=== PATIENT | male | born 1950 | race Caucasian/White ===

== ENCOUNTER 2020-08-05 08:12 | Outpatient (REF) | payer MEDICARE, SELFPAY | END 2020-08-05 08:13 | disposition home or self-care (01) | LOC: HO.LAB 08:12 | PROVIDERS: Visit Provider Internal Medicine | DX: Z20.822 Contact with and (suspected) exposure to COVID-19 (principal) | CPT/HCPCS: 36415; C9803; U0003 ==

== ENCOUNTER 2022-04-08 13:13 | Outpatient (REF) | payer MEDICARE, SELFPAY | END 2022-04-08 13:14 | disposition home or self-care (01) | LOC: HO.BBR 13:13 | PROVIDERS: Visit Provider Internal Medicine Hematology | DX: Z13.89 Encounter for screening for other disorder (principal) ==

== ENCOUNTER 2022-08-12 08:58 | Outpatient (REF) | payer MEDICARE, SELFPAY | END 2022-08-12 08:59 | disposition home or self-care (01) | LOC: HO.BBR 08:58 | PROVIDERS: PCP Family Medicine; Visit Provider Internal Medicine Hematology | DX: Z13.89 Encounter for screening for other disorder (principal) ==

== ENCOUNTER 2022-12-17 08:56 | Outpatient (REF) | payer MEDICARE, SELFPAY | END 2022-12-17 08:57 | disposition home or self-care (01) | LOC: HO.BBR 08:56 | PROVIDERS: Visit Provider Internal Medicine Hematology | DX: Z13.89 Encounter for screening for other disorder (principal) ==

== ENCOUNTER 2023-05-27 08:49 | Outpatient (REF) | payer MEDICARE, SELFPAY | END 2023-05-27 08:50 | disposition home or self-care (01) | LOC: HO.BBR 08:49 | PROVIDERS: PCP Family Medicine; Visit Provider Internal Medicine Hematology | DX: Z13.89 Encounter for screening for other disorder (principal) ==

== ENCOUNTER 2024-01-03 09:53 | Outpatient (REF) | payer MEDICARE, SELFPAY | END 2024-01-03 09:54 | disposition home or self-care (01) | LOC: HO.BBR 09:53 | PROVIDERS: PCP Family Medicine; Visit Provider Internal Medicine Hematology | DX: Z13.89 Encounter for screening for other disorder (principal) ==

== ENCOUNTER 2025-06-01 11:01 | Outpatient (REF) | payer MEDICARE, SELFPAY ==
--- OUTSIDE RECORDS SUMMARY | 2025-06-01 13:19 | XMS_ITS | Encounter Summary ---
Author Organization [facility] Address [address] [place] [phone] Phone Care Team Providers Care Tire Technician Name Role Phone Scott Wiggins DO Primary Care Provider [phone] Darren Molina MD Primary Care Provide r Reason for Referral * Physical Therapy (Routine) - Closed Specialty Diagnoses / Procedures Referred By Phillip choi Referred To Contact Physical Therapy Diagnoses Encounter for rehabilitation Scott Wiggins DO Phone: tel: fax: [email or web address] [address] [address] Phone: tel: Referral ID Status Reason Start Date Expiration Date Visits Re quested Visits Authorized [id number] Closed 03/03/2018 05/06/2018 21 21 Encounter Details Date Type Department Care Team (Latest Contact Info) Description 02/24/2018 Transcribe Orders [facility] [address] [place] [phone] Scott Wiggins DO [address] [place] [address] [email or web address] Encounter for rehabilitation (Primary Dx) Social History Tobacco Use Types Packs/Day Years Used Date Smoking Tobacco: Never Assessed Sex and Gender Information Value Date Recorded Sex Assigned at Not on file Legal Sex Male 6:37 PM EST Gender Identity Male 07/05/2023 12:45 PM EST Sexual Orientation Straight 07/05/2023 12 :45 PM EST documented as of this encounter Plan of Treatment Scheduled Referrals Name Type Priority Associated Diagnoses Orde r Schedule Ambulatory referral to [facility] Physical Therapy Outpatient Referral Routine Encounter for rehabilitation Ordered: 02/24/2018 documented as of this encounter Visit Diagnoses Diagnosis Encounter for rehabilitation- Primary documented in this encounter Additional Health Concerns Infection Onset Date Last Indicated Resolved Time CoV-Exposed Comment:Recent close contact documented in the COVID-19 PCR/PRO order 07/18/2021 07/23/2021 08/02/2021 1:[address] documented as of this encounter Care Teams Tire Technician Relationship Specialty Start Date End Date Scott Wiggins DO [address] [place] [phone] PCP - General 05/11/17 12/12/18 Darren Molina MD [address] [address] PCP - General Family Medicine 12/13/18 documented as of this encounter Additional Source Comments The information contained in this document represents components of the legal health record. It is not the complete legal health record.[facility]
--- OUTSIDE RECORDS SUMMARY | 2025-06-01 13:19 | XMS_ITS | Encounter Summary ---
Author Organization [facility] Address [address] [place] [address] Phone Care Team Providers Care Bulk Fluids Handler Name Role Phone Darren Molina MD Primary Care Provide r Encounter Details Date Type Department Care Team (Late st Contact Info) Description 10/23/2024 Procedure Pass [facility] Endoscopy Admitting Dept Virtual Department [address] [place] [address] Social History Tobacco Use Types Packs/Day Years Used Date Smoking Tobacco: Never Smokeless Tobacco: Never Alcohol Use Standard Drinks/Week Comments Yes 7 (1 standard drink = 0.6 oz pur e alcohol) 1 beer per day Education Answer Date Recorded Are you interested in more education? Not on yu e 11/21/2022 Are you concerned about learning? Not on file 11/21/2022 No 11/21/2022 No 11/21/2022 Digital Access Answer Date Recorded No 12/20/2022 No 12/20/2022 Reliable internet access at home? Not on file 12/20/2022 Device with a working camera? Not on file Intimate Partner Violence Answer Date R ecorded Are you denied basic needs s uch as food, clothing, or medical care? No 10/17/2024 In the past 12 months have y ou been in a relationship with a person who hurts, threatens, or tries to control you? No 10/17/2024 Are you denied basic needs s uch as food, clothing, or medical care? No 10/17/2024 In the past 12 months have y ou been in a relationship with a person who hurts, threatens, or tries to control you? No 10/17/2024 Sex and Gender Information Value Date Recorded Sex Assigned at Not on file Legal Sex Male 6:37 PM EST Gender Identity Male 07/05/2023 12:45 PM EST Sexual Orientation Straight 07/05/2023 12 :45 PM EST documented as of this encounter Plan of Treatment Not on file documented as of this encounter Visit Diagnoses Not on filedocumented in this encounter Care Teams Bulk Fluids Handler Relationship Specialty Start Date End Date Darren Molina MD [address] [facility] [address] [place] [address] PCP - General Family Medicine 12/13/18 documented as of this encounter Additional Source Comments The information contained in this document represents components of the legal health record. It is not the complete legal health record.[facility]
--- OUTSIDE RECORDS SUMMARY | 2025-06-01 13:19 | XMS_ITS | Encounter Summary ---
Author Organization [facility] Address [address] [place] [address] Phone Care Team Providers Care Auto Radio Mechanic Name Role Phone Darren Molina MD Primary Care Provide r Encounter Details Date Type Department Care Team (Latest Contact Info) Description 09/19/2021 Transcribe Orders Virtual Department 30 [place] [address] Darren Molina MD [address] [id number] Heartburn (Primary Dx); Gastroesophageal reflux disease without esophagitis Social History Tobacco Use Types Packs/Day Years Used Date Smoking Tobacco: Never Smokeless Tobacco: Never Sex and Gender Information Value Date Recorded Sex Assigned at Not on file Legal Sex Male 6:37 PM EST Gender Identity Male 07/05/2023 12:45 PM EST Sexual Orientation Straight 07/05/2023 12 :45 PM EST documented as of this encounter Plan of Treatment Not on file documented as of this encounter Results * FL BARIUM SWALLOW ESOPHAGRAM DOUBLE CONTRAST (10/02/2021 11:01 AM EST) Anatomical Region Laterality Modality Chest Computed Radiogr aphy 10/02/2021 1:22 PM EST Impressions 10/02/2021 1:25 PM EST Small sliding-type hiatal hernia with minimal distal esophageal dysmotility but no significant mucosal pathology demonstrated. FLUOROSCOPY TIME: 1 min. 11 sec; 104 IMAGES/FRAMES POS - [id number] Narrative 10/02/2021 1:25 PM EST COMPARISON: None FINDINGS: A preliminary lateral view of the neck reveals diffuse degenerative disc changes with moderately large ventral osteophytes present at C4-5 and C5-6. A standard double contrast study was performed and recorded on digital rapid sequence, spot, and overhead views. Following ingestion the contrast mixture deglutition was assessed fluoroscopically. No evidence of epiglottic penetration, nasopharyngeal reflux, or cricopharyngeal achalasia. No significant residuum in the valleculae or paranasal sinuses. Minimal esophageal dysmotility consisting of occasional mild tertiary contractions with preserved primary and secondary stripping waves. A small sliding-type hiatal hernia was elicited during a prone Valsalva maneuver. No spontaneous gastroesophageal reflux or gross esophageal mucosal ulcerations or strictures apparent. Procedure Note Jefferson Camacho MD - 10/02/2021 COMPARISON: None FINDINGS: A preliminary lateral view of the neck reveals diffuse degenerative discchanges with moderately large ventral osteophytes present at C4-5 andC5-6. A standard double contrast study was performed and recorded ondigital rapid sequence, spot, and overhead views. Following ingestion the contrast mixture deglutition was assessedfluoroscopically. No evidence of epiglottic penetration, nasopharyngealreflux, or cricopharyngeal achalasia. No significant residuum in thevalleculae or paranasal sinuses. Minimal esophageal dysmotility consistingof occasional mild tertiary contractions with preserved primary andsecondary stripping waves. A small sliding-type hiatal hernia was elicitedduring a prone Valsalva maneuver. No spontaneous gastroesophageal refluxor gross esophageal mucosal ulcerations or strictures apparent. IMPRESSION: Small sliding-type hiatal hernia with minimal distal esophagealdysmotility but no significant mucosal pathology demonstrated. FLUOROSCOPY TIME: 1 min. 11 sec; 104 IMAGES/FRAMES POS - [id number] Darren Brown MD [facility] Final Result documented in this encounter Visit Diagnoses Diagnosis Heartburn- Primary Gastroesophageal reflux disease without esophagitis Esophageal reflux Heartburn Gastroesophageal reflux disease without esophagitis Esophageal reflux documented in this encounter Care Teams Auto Radio Mechanic Relationship Specialty Start Date End Date Darren Molina MD [address] [address] PCP - General Family Medicine 12/13/18 documented as of this encounter Additional Source Comments The information contained in this document represents components of the legal health record. It is not the complete legal health record.[facility]
--- OUTSIDE RECORDS SUMMARY | 2025-06-01 13:19 | XMS_ITS | Encounter Summary ---
Author Organization [facility] Address [address] [place] [address] Phone Care Team Providers Care Fiber Artist Name Role Phone Scott Wiggins DO Primary Care Provider [phone] Darren Molina MD Primary Care Provide r Encounter Details Date Type Department Care Team (Latest Contact Info) Description 10/27/2017 Transcribe Orders [facility] PFT Lab [address] [place] [address] Scott Wiggins DO [address] [place] [address] [email or web address] Shortness of breath (Primary Dx) Social History Tobacco Use Types [...] documented as of this encounter Results * Pulmonary Function Test Reason for Exam: Dyspnea/Shortness of Breath; Type of PFT Test: Spirometry with bronchodilator, Spirometry while seated and supine; Performing Location: [facility] (11/11/2017 9:48 AM EDT) FEV1 FVC FEV1/FVC TLC DLCO Anatomical Region Laterality Modality Other Narrative 11/11/2017 9:48 AM EDT Please see PFT interpretation by Dr. Payne in the Notes activity. Service date 11/11/2017 us Provider Not In System PhD PFT ORDERABLES Final Result documented in this encounter Visit Diagnoses Diagnosis Shortness of breath- Primary Shortness of breath documented in this encounter Additional Health Concerns Infection Onset Date Last Indicated Resolved Time CoV-Exposed Comment:Recent close contact documented in the COVID-19 PCR/PRO order 07/18/2021 07/23/2021 08/02/2021 1:[address] documented as of this encounter Care Teams Fiber Artist Relationship Specialty Start Date End Date Scott Wiggins DO [address] [place] [address] [email or web address] PCP - General 05/11/17 12/12/18 Darren Molina MD [address] [address] PCP - General Family Medicine 12/13/18 documented as of this encounter Additional Source Comments The information contained in this document represents components of the legal health record. It is not the complete legal health record.[facility]
--- OUTSIDE RECORDS SUMMARY | 2025-06-01 13:19 | XMS_ITS | Encounter Summary ---
Author Organization [facility] Address [address] [place] [address] Phone Care Team Providers Care Slip Maker Name Role Phone Darren Molina MD Primary Care Provide r Encounter Details Date Type Department Care Team (Late st Contact Info) Description 06/09/2023 Procedure Pass [facility], Ct Scan - [address] [address] Social History Tobacco Use Types Packs/Day Years Used Date Smoking Tobacco: Never Smokeless Tobacco: Never Alcohol Use Standard Drinks/Week Comments Yes 0 (1 standard drink = 0.6 oz pur e alcohol) rare Education Answer Date Recorded Are you interested in more education? Not on yu e 11/21/2022 Are you concerned about learning? Not on file 11/21/2022 No 11/21/2022 No 11/21/2022 Digital Access Answer Date Recorded No 12/20/2022 No 12/20/2022 Reliable internet access at home? Not on file 12/20/2022 Device with a working camera? Not on file Sex and Gender Information Value Date Recorded Sex Assigned at Not on file Legal Sex Male 6:37 PM EST Gender Identity Male 07/05/2023 12:45 PM EST Sexual Orientation Straight 07/05/2023 12 :45 PM EST documented as of this encounter Plan of Treatment Not on file documented as of this encounter Visit Diagnoses Not on filedocumented in this encounter Care Teams Slip Maker Relationship Specialty Start Date End Date Darren Molina MD [address] [address] PCP - General Family Medicine 12/13/18 documented as of this encounter Additional Source Comments The information contained in this document represents components of the legal health record. It is not the complete legal health record.[facility]
--- OUTSIDE RECORDS SUMMARY | 2025-06-01 13:19 | XMS_ITS | Encounter Summary ---
Author Organization [facility] Address [address] [place] [address] Phone Care Team Providers Care Head Of Quality Name Role Phone Darren Molina MD Primary Care Provide r Reason for Referral * MRI/CAT Scan - Closed Specialty Diagnoses / Procedures Referred By Phillip choi Referred To Contact Radiology Diagnoses Abdominal pain, unspecified abdominal location Abnormal weight loss Procedures CT Abdomen/Pelvis CHG CT SCAN,ABDOMENT AND PELVIS,W CONTRAST CHG CT SCAN,ABDOMENT AND PELVIS,W/O CONTRAST CHG CT SCAN,ABDOMENT AND PELVIS,COMBO Anum Carnes PA-C Phone: tel: fax: [email or web address] Referral ID Status Reason Start Date Expiration Date Visits Re quested Visits Authorized [id number] Closed 06/09/2023 08/06/2023 1 1 Encounter Details Date Type Department Care Team (Latest Contact Info) Description 06/09/2023 Transcribe Orders [facility] Department [address] [place] [address] Anum Carnes PA-C [address] [place] [address] [email or web address] Abdominal pain, unspecified abdominal location (Primary Dx); Abnormal weight loss Social History Tobacco Use Types Packs/Day Years [...] documented as of this encounter Results * CT ABDOMEN/PELVIS WITH CONTRAST (07/07/2023 3:56 PM EST) Anatomical Region Laterality Modality Abdomen, Pelvis Computed Tomogra phy 07/08/2023 9:45 AM EST Impressions 07/08/2023 10:08 AM EST 1. Large diverticulum containing oral contrast and air arising from the horizontal portion of the duodenum slightly to the right of midline measuring 3.7 x 3.3 cm. Mild mass-effect on the pancreatic head. 2. Mild nodularity of the bilateral adrenal glands measuring 1.1 x 1.4 cm on the right and 1.3 x 0.8 cm left. Correlation with prior studies recommended, if available. If no prior studies are available and the patient has no personal history of malignancy, follow-up adrenal mass protocol CT is recommended in 12 months. 3. 0.9 cm left lower lobe pulmonary nodule. Consider referral to pulmonary nodules clinical and CT follow-up in three months, PET/CT, or tissue sampling per 2017 Fleischner Society guidelines regarding patient's risk factors for primary lung malignancy. 3. Mildly decreased attenuation of the hepatic parenchyma suggestive of hepatic steatosis. 4. Colonic diverticulosis without CT evidence of active inflammation. Narrative 07/08/2023 10:[address] ABDOMEN/PELVIS WITH CONTRAST Referring clinician's provided indication for this examination in [facility]: Outside Radiology Order; ABD PAIN, ABNORMAL WEIGHT LOSS TECHNIQUE: Multidetector-row CT of the abdomen and pelvis was performed after administration of intravenous contrast using tailored dose modulation techniques. Images were reconstructed in the axial, coronal, and sagittal planes. COMPARISON: Barium swallow study 10/02/2021 FINDINGS: Lower Chest: There is a 0.9 x 0.8 cm left lower lobe pulmonary nodule. Calcified left lower lobe granuloma. No consolidation or pleural effusions. Liver: Mildly decreased attenuation of the hepatic parenchyma which may be seen in No focal lesions. Biliary: No biliary ductal dilatation. Spleen: No splenomegaly or focal lesions. Pancreas: Pancreatic lipoatrophy. No masses or ductal dilatation. Adrenal Glands: Mild nodularity of the bilateral adrenal glands measuring 1.1 x 1.4 cm on the right and 1.3 x 0.8 cm left. Kidneys/Ureters: No solid masses, stones, or hydronephrosis. Bowel: Small hiatal hernia. There is a large diverticulum containing oral contrast and air arising from the horizontal portion of the duodenum slightly to the right of midline measuring 3.7 x 3.3 cm. There is mild mass-effect on the pancreatic head. Normal appendix. Colonic diverticulosis without CT evidence of active inflammation. The colon is decompressed, limiting evaluation. No distention or wall thickening. Peritoneum/Retroperitoneum: No masses, pneumoperitoneum, or fluid. Lymph Nodes: No lymphadenopathy. Pelvic Organs/Bladder: The urinary bladder is physiologically distended. No mural thickening. Vessels: Atherosclerotic calcification of the aorta and major aortic branch vessels. No abdominal aortic aneurysm. Bones/Soft Tissues: Small fat-containing umbilical hernia. Postsurgical changes status post left total hip arthroplasty with associated streak artifact which obscures [id number]. Multilevel degenerative changes of the spine. No destructive osseous lesions. Procedure Note Jovita Arellano MD - 07/08/2023 CT ABDOMEN/PELVIS WITH CONTRAST Referring clinician's provided indication for this examination in [facility]:Outside Radiology Order; ABD PAIN, ABNORMAL WEIGHT LOSS TECHNIQUE: Multidetector-row CT of the abdomen and pelvis was performedafter administration of intravenous contrast using tailored dosemodulation techniques. Images were reconstructed in the axial, coronal,and sagittal planes. COMPARISON: Barium swallow study 10/02/2021 FINDINGS: Lower Chest: There is a 0.9 x 0.8 cm left lower lobe pulmonary nodule.Calcified left lower lobe granuloma. No consolidation or pleuraleffusions. Liver: Mildly decreased attenuation of the hepatic parenchyma which may beseen in No focal lesions. Biliary: No biliary ductal dilatation. Spleen: No splenomegaly or focal lesions. Pancreas: Pancreatic lipoatrophy. No masses or ductal dilatation. Adrenal Glands: Mild nodularity of the bilateral adrenal glands measuring1.1 x 1.4 cm on the right and 1.3 x 0.8 cm left. Kidneys/Ureters: No solid masses, stones, or hydronephrosis. Bowel: Small hiatal hernia. There is a large diverticulum containing oralcontrast and air arising from the horizontal portion of the duodenumslightly to the right of midline measuring 3.7 x 3.3 cm. There is mildmass-effect on the pancreatic head. Normal appendix. Colonicdiverticulosis without CT evidence of active inflammation. The colon isdecompressed, limiting evaluation. No distention or wall thickening. Peritoneum/Retroperitoneum: No masses, pneumoperitoneum, or fluid. Lymph Nodes: No lymphadenopathy. Pelvic Organs/Bladder: The urinary bladder is physiologically distended.No mural thickening. Vessels: Atherosclerotic calcification of the aorta and major aorticbranch vessels. No abdominal aortic aneurysm. Bones/Soft Tissues: Small fat-containing umbilical hernia. Postsurgicalchanges status post left total hip arthroplasty with associated streakartifact which obscures [id number]. Multilevel degenerative changes ofthe spine. No destructive osseous lesions. IMPRESSION: 1. Large diverticulum containing oral contrast and air arising from thehorizontal portion of the duodenum slightly to the right of midlinemeasuring 3.7 x 3.3 cm. Mild mass-effect on the pancreatic head. 2. Mild nodularity of the bilateral adrenal glands measuring 1.1 x 1.4 cmon the right and 1.3 x 0.8 cm left. Correlation with prior studiesrecommended, if available. If no prior studies are available and thepatient has no personal history of malignancy, follow-up adrenal massprotocol CT is recommended in 12 months. 3. 0.9 cm left lower lobe pulmonary nodule. Consider referral topulmonary nodules clinical and CT follow-up in three months, PET/CT, ortissue sampling per 2017 Fleischner Society guidelines regarding patient'srisk factors for primary lung malignancy. 3. Mildly decreased attenuation of the hepatic parenchyma suggestive ofhepatic steatosis. 4. Colonic diverticulosis without CT evidence of active inflammation. Anum Carnes PA-C IMG CT ABD/PELVIS Final Result documented in this encounter Visit Diagnoses Diagnosis Abdominal pain, unspecified abdominal location- Primary Abnormal weight loss Loss of weight Abdominal pain, unspecified abdominal location Abnormal weight loss Loss of weight documented in this encounter Care Teams Head Of Quality Relationship Specialty Start Date End Date Darren Molina MD [address] [address] PCP - General Family Medicine 12/13/18 documented as of this encounter Additional Source Comments The information contained in this document represents components of the legal health record. It is not the complete legal health record.[facility]
--- OUTSIDE RECORDS SUMMARY | 2025-06-01 13:19 | XMS_ITS | Encounter Summary ---
Author Organization [facility] Address [address] [place] [address] Phone Care Team Providers Care Scientific Informatics Leader Name Role Phone Darren Molina MD Primary Care Provide r Encounter Details Date Type Department Care Team (Late st Contact Info) Description 07/25/2021 Transcribe Orders [facility] Specimen Processing [address] [place] [address] Darren Molina MD [address] [address] Social History Tobacco Use Types Packs/Day Years [...] Diagnoses Not on filedocumented in this encounter Additional Health Concerns Infection Onset Date Last Indicated Resolved Time CoV-Exposed Comment:Recent close contact documented in the COVID-19 PCR/PRO order 07/18/2021 07/23/2021 08/02/2021 1:[address] documented as of this encounter Care Teams Scientific Informatics Leader Relationship Specialty Start Date End Date Darren Molina MD [address] [facility] [address] [place] [address] PCP - General Family Medicine 12/13/18 documented as of this encounter Additional Source Comments The information contained in this document represents components of the legal health record. It is not the complete legal health record.[facility]
--- OUTSIDE RECORDS SUMMARY | 2025-06-01 13:19 | XMS_ITS | Encounter Summary ---
Author Organization [facility] Address [address] [place] [address] Phone Care Team Providers Care Sizing Machine Operator Name Role Phone Darren Molina MD Primary Care Provide r Encounter Details Date Type Department Care Team (Late st Contact Info) Description 10/17/2024 Procedure Pass [facility] Endoscopy Admitting Dept Virtual Department [address] [place] [address] Social History Tobacco Use Types Packs/Day Years [...] on filedocumented in this encounter Care Teams Sizing Machine Operator Relationship Specialty Start Date End Date Darren Molina MD [address] [facility] [address] [place] [address] PCP - General Family Medicine 12/13/18 documented as of this encounter Additional Source Comments The information contained in this document represents components of the legal health record. It is not the complete legal health record.[facility]
--- OUTSIDE RECORDS SUMMARY | 2025-06-01 13:19 | XMS_ITS | Encounter Summary ---
Author Organization [facility] Address [address] [place] [address] [place] [phone] Phone Care Team Providers Care Rasper Machine Operator Name Role Phone Scott Wiggins DO Primary Care Provider [phone] Darren Molina MD Primary Care Provide r Encounter Details Date Type Department Care Team (Late st Contact Info) Description 02/24/2018 Transcribe Orders [facility] [address] [place] [address] Scott Wiggins DO [address] [place] [address] [email or web address] Social History Tobacco Use Types Packs/Day Years [...] documented as of this encounter Care Teams Rasper Machine Operator Relationship Specialty Start Date End Date Scott Wiggins DO [address] [place] [phone] [email or web address] PCP - General 05/11/17 12/12/18 [facility] [address] [address] PCP - General Family Medicine 12/13/18 documented as of this encounter Additional Source Comments The information contained in this document represents components of the legal health record. It is not the complete legal health record.[facility]
--- OUTSIDE RECORDS SUMMARY | 2025-06-01 13:19 | XMS_ITS | Encounter Summary ---
Author Organization [facility] Address [address] [place] [phone] Phone Care Team Providers Care Vp Delivery Name Role Phone Darren Molina MD Primary Care Provide r Encounter Details Date Type Department Care Team ([facility] st Contact Info) Description 10/20/2021 Procedure [facility] Admitting Dept Virtual Department [address] [place] [phone] Social History Tobacco Use Types Packs/Day Years Used Date Smoking Tobacco: Never Smokeless Tobacco: Never Alcohol Use Standard Drinks/Week Comments Yes 0 (1 standard drink = 0.6 oz pur e alcohol) rare Sex and Gender Information Value Date Recorded Sex Assigned at Not on file Legal Sex Male 6:37 PM EST Gender Identity Male 07/05/2023 12:45 PM EST Sexual Orientation Straight 07/05/2023 12 :45 PM EST documented as of this encounter Plan of Treatment Not on file documented as of this encounter Visit Diagnoses Not on filedocumented in this encounter Care Teams Vp Delivery Relationship Specialty Start Date End Date Darren Molina MD [address] [address] PCP - General Family Medicine 12/13/18 documented as of this encounter Additional Source Comments The information contained in this document represents components of the legal health record. It is not the complete legal health record.[facility]
--- OUTSIDE RECORDS SUMMARY | 2025-06-01 13:19 | XMS_ITS | Clinical Summary ---
Author Organization [facility] Address [address] [place] [phone] Phone Care Team Providers Care Perforator Typist Name Role Phone Darren Molina MD Primary Care Provide r Allergies Active Allergy Reactions Criticality Noted Date Comments Lactose 10/05/2024 Medications lisinopril-hydroCH LOROthiazide (PRINZIDE,ZESTORET IC) 20-25 mg per tablet 12/28/19 21 Active omeprazole (PRILOSEC) 20 MG capsule 12/04/19 21 Active tadalafiL (CIALIS) 5 MG tablet TAKE ONE TABLET BY MOUTH AT THE SAME TIME EVERY DAY 12/31/19 21 Active clonazePAM (KLONOPIN) 0.25 MG disintegrating tablet Take 0.25 mg by mouth nightly at bedtime as needed for anxiety. Active pantoprazole (PROTONIX) 40 MG tablet Take 40 mg by mouth daily. Takes 40mg and is tapering off. Active busPIRone (BUSPAR) 10 MG tablet Take 10 mg by mouth 2 (two) times a day. Active multivitamin per tablet Take 1 tablet by mouth daily. Active aspirin 81 mg chewable tablet Take 81 mg by mouth daily. Active busPIRone (BUSPAR) 5 MG tablet Take 5 mg by mouth 2 (two) times a day. 03/16/20 22 Active sertraline (ZOLOFT) 50 MG tablet Take 50 mg by mouth. 04/25/20 21 Active naproxen (NAPROSYN) 500 MG tablet Take 1 tablet (500 mg total) by mouth 2 (two) times a day for 3 days. Then twice daily as needed for pain, inflammation 20 tablet 05/28/20 22 Active famotidine (PEPCID) 40 MG tablet Take 40 mg by mouth nightly at bedtime as needed. Active losartan-hydroCHLO ROthiazide (HYZAAR) 100-25 mg per tablet Take 1 tablet by mouth daily. Active clonazePAM (KLONOPIN) 0.5 MG tablet TAKE 1/2-1 TABLET BY MOUTH DAILY AT BEDTIME 08/09/19 25 Active Bacillus coagulans-inulin 1 billion-250 cell-mg Cap Take 250 mg by mouth daily. Active psyllium husk, with sugar, (METAMUCIL, WITH SUGAR, ORAL) Take by mouth. Ac tive Active Problems No known active problems Immunizations Immunization Administration Dates Next Due INFLUENZA, SPLIT VIRUS, TRIV ALENT W/ PRESERVATIVE IM 04/24/2019,05/12/2018,04/29/2017,07/13,06/11/2015,04/16/2014,08/04/2012 Influenza High-Dose Quadriva lent Preservative Free IM 04/27/2022,04/27/2021 Influenza Quadrivalent Adjuv anted Preservative Free IM 05/11/2020 Influenza Quadrivalent Prese rvative Free IM 07/13/2016 Influenza, whole 05/11/2020 Pneumococcal conjugate PCV13 04/29/2017 Pneumococcal polysaccharide PPSV23 05/12/2018 Tdap 11/06/2013 Zoster live 11/06/2013 Social History Tobacco Use Types Packs/Day Years [...] Orientation Straight 07/05/2023 12 :45 PM EST Last Filed Vital Signs Vital Sign Reading Time Taken Comments Blood Pressure 112/75 10/17/2024 8:25 AM EDT Pulse 75 10/17/2024 8:15 AM EDT Temperature 36.1 C (97 F) 10/17/2024 8:10 AM EDT Respiratory Rate 16 10/17/2024 8:15 AM EDT Oxygen Saturation 95% 10/17/2024 8:25 AM EDT Inhaled Oxygen Concentration - - Weight 79.4 kg (175 lb) 10/05/2024 1:41 PM EDT Height 172.7 cm (5' 8 ) 10/05/2024 1:41 PM EDT Body Mass Index 26.61 10/05/2024 1:41 PM EDT Plan of Treatment Health Maintenance Due Date Last Done Comments CREATININE LEVEL 1951 LIPID PANEL 1951 POTASSIUM LEVEL 1951 DEPRESSION SCREENING 1963 HEPATITIS C SCREENING 11/04/1969 COLOGUARD 11/04/1996 COLONOSCOPY 11/04/1996 COLORECTAL CANCER SCREENING 11/04/1996 FIT TEST 11/04/1996 FOBT 11/04/1996 SIGMOIDOSCOPY 11/04/1996 VIRTUAL COLONOSCOPY 11/04/1996 ZOSTER VACCINES (2 of 3) 01/01/2014 11/06/2013 INFLUENZA VACCINE (#1) 2025 4, 05/21/2023, 04/27/2022, Additional history exists COVID-19 VACCINE (2024- season) 2025 04/27/2024, 05/21/2023, 04/27/2022, Additional history exists Adult Td,Tdap Booster 03/09/2034 03/09/2024, 014 PNEUMOCOCCAL VACCINES (50+ years) Completed 05/12/2018, 04/29/2017 RSV VACCINE Completed 04/27/2024 SMOKING STATUS SCREENING (Once After 26 Yrs) Completed 10/17/2024 HEPATITIS A VACCINES Aged Out No long er eligible based on patient's age to complete this topic HIB VACCINES Aged Out No longer eligi ble based on patient's age to complete this topic MENINGOCOCCAL VACCINES (ACWY) Aged Out No longer eligible based on patient's age to complete this topic MENINGOCOCCAL VACCINES (B) Aged Out N o longer eligible based on patient's age to complete this topic Medical Devices Implanted Type [employer] Device Identifier Shelf Expiration Date Model / Serial / Lot Right Knee Left Hip Bilateral Ankles Right Leg Insurance MEDICARE PART A & B Member Subscriber Plan / Payer (Ef fective 2019-Present) Name:Oscar Feldman Member ID:[id number] Relation to Subscriber:Self Name:Oscar Feldman Subscriber ID:[id number] Payer ID:[id number] Group ID:Not on file Type:Medicare Address: [facility] [employer] [facility] [address] [facility] [address] [employer] MEDEX SUPPLEMENT MEDICARE PART A & B MEDEX SUPPLEMENT MEDICARE PART A & B MEDICARE PART A & B MEDICARE PART A & B MEDEX SUPPLEMENT MEDICARE PART A & B [employer] MEDEX SUPPLEMENT MEDICARE PART A & B [employer] MEDEX SUPPLEMENT MEDICARE PART A & B MEDICARE PART A & B MEDEX SUPPLEMENT Care Teams Perforator Typist Relationship Specialty Start Date End Date Darren Molina MD [address] [address] PCP - General Family Medicine 12/13/18 Additional Source Comments The information contained in this document represents components of the legal health record. It is not the complete legal health record.[facility]
== END 2025-06-01 11:02 | disposition home or self-care (01) ==
LOC: HO.BBR 11:01
PROVIDERS: PCP Family Medicine; Visit Provider Internal Medicine Hematology
DX: Z13.89 Encounter for screening for other disorder (principal)